=== PATIENT | male | born 2000 | race Caucasian/White ===

== ENCOUNTER 2021-09-28 17:42 | Emergency (ER) | payer SELFPAY ==
[~2021-09-28] VITALS: Ht 180.3 cm; Wt 75.0 kg
[2021-09-28 18:20] VITALS: BP 131/74
[2021-09-28] MEDS ORDERED: DEXAMETHASONE SOD PHOS 4 MG/ML 5 ML VIAL IM ONE (18:45)
[2021-09-28] MEDS ORDERED: SULF-261 PO (19:17)
== END 2021-09-28 19:43 | disposition home or self-care (01) ==
LOC: EMS 18:15
DX: T63.461A Toxic effect of venom of wasps, accidental (unintentional), initial encounter (principal); L03.113 Cellulitis of right upper limb; Y92.89 Other specified places as the place of occurrence of the external cause
CPT/HCPCS: 99283; 96372; J1100